=== PATIENT | male | born 1970 | race Two or more races ===

== ENCOUNTER 2019-05-05 08:48 | Emergency (ER) | payer OTHER ==
[~2019-05-05] VITALS: Ht 177.8 cm; Wt 97.1 kg
[2019-05-05] MEDS ORDERED: LIPITOR20 MG (09:15)
[2019-05-05] MEDS ORDERED: COZAAR25 MG (09:15)
== END 2019-05-05 16:02 | disposition home or self-care (01) ==
LOC: ER 08:48
DX: K81.0 Acute cholecystitis (principal); M54.5 Low back pain; R10.84 Generalized abdominal pain

== ENCOUNTER 2019-05-08 07:09 | Outpatient (CLI) | payer OTHER ==
[~2019-05-08 07:09] MED LIST: COZAAR25 MG; LIPITOR20 MG
== END 2019-05-08 07:11 | disposition home or self-care (01) ==
LOC: NUCLEAR 07:09
DX: K81.1 Chronic cholecystitis (principal)
CPT/HCPCS: 78227; A9537